=== PATIENT | male | born 1995 | race African-American/Black ===

== ENCOUNTER 2017-09-22 23:04 | Emergency (ER) | payer OTHER ==
[2017-09-22 23:12] VITALS: BP 120/79
--- NOTE | 2017-09-22 23:41 | ER Document Report ---
HPI - HPI Patient complains to provider of: sore throat Pain Level: 0 Context: Patient is a 22-year-old male that comes to the emergency department for chief complaint of a sensation of tingling and soreness in the back of his throat, he denies fever, chills, difficulty swallowing, difficulty breathing, cough, abdominal pain, chest pain, headache. He states he has sleep apnea and he is waiting for his CPAP to come in to begin use. He states he is visiting from out of town on a work contract. He denies any other symptoms. He denies any daily medications. - CARDIOVASCULAR Cardiovascular: DENIES: Chest pain Past Medical History - General Information source: Patient - Social History Smoking Status: Never Smoker Drug Abuse: None Lives with: Family Family History: Reviewed & Not Pertinent Patient has suicidal ideation: No Patient has homicidal ideation: No - Medical History Medical History: Negative Renal/ Medical History: Denies: Hx Peritoneal Dialysis Surgical Hx: Negative - Immunizations Immunizations up to date: Yes Hx Diphtheria, Pertussis, Tetanus Vaccination: Yes Vertical Provider Document - CONSTITUTIONAL General Appearance: WD/WN, No Apparent Distress - HEENT HEENT: Atraumatic, Normal ENT Exam, Normocephalic - NECK Neck: Normal Inspection - RESPIRATORY Respiratory: Breath Sounds Normal, No Respiratory Distress O2 Sat by Pulse Oximetry: 100 - CARDIOVASCULAR Cardiovascular: Regular Rate, Regular Rhythm - GI/ABDOMEN Gastrointestinal: Abdomen Soft, Abdomen Non-Tender - MUSCULOSKELETAL/EXTREMETIES Musculoskeletal/Extremeties: MAEW, FROM, Non-Tender - NEURO Level of Consciousness: Awake, Alert, Appropriate Motor/Sensory: No Motor Deficit, No Sensory Deficit - DERM Integumentary: Warm, Dry, No Rash Course - Re-evaluation Re-evalutation: Negative strep. Unremarkable physical exam with no uvular edema, rash, adenopathy, or any other abnormalities noted on exam including no congestion. Discussed negative results with patient, recommended that he is probably developing some sore throat with a developing viral illness, no other evidence of any other etiology at this time. Patient was given dexamethasone, discussed follow-up and return precautions, patient states satisfaction and agreement. - Vital Signs Vital signs: Temp Pulse Resp BP Pulse Ox 97.9 F 61 18 120/79 100 09/22/17 23:10 09/22/17 23:10 09/22/17 23:10 09/22/17 23:10 09/22/17 23:10 Discharge - Discharge Clinical Impression: Pharyngitis Qualifiers: Pharyngitis/tonsillitis etiology: unspecified etiology Qualified Code(s): J02.9 - Acute pharyngitis, unspecified Condition: Stable Disposition: HOME, SELF-CARE Additional Instructions: Your strep test is negative. No concerning abnormalities are seen on your examination at this time. Your probably developing a viral infection. Rest, drink plenty fluids, take Tylenol or ibuprofen for pain, you have been treated for pain and swelling symptoms tonight as well. Follow-up with primary care. Return the emergency department for any concerning or worsening symptoms including difficulty breathing or swallowing, or for any other concerning symptoms.
[2017-09-23] MEDS ORDERED: DEXAMETHASONE SOD PHOS INJ 10 MG/1 ML VIAL IM ONE (00:46)
== END 2017-09-23 01:00 | disposition home or self-care (01) ==
LOC: ER 23:04
DX: J02.9 Acute pharyngitis, unspecified (principal); G47.30 Sleep apnea, unspecified
CPT/HCPCS: 99284; 96372; 87070; 87880; J1100